=== PATIENT | male | born 1950 | race Caucasian/White ===

== ENCOUNTER 2016-06-27 02:48 | Inpatient (IN) | payer MEDICARE, MEDICAID ==
[~2016-06-27] VITALS: Ht 177.8 cm; Wt 56.3 kg
[2016-06-27 04:00] VITALS: BP 138/70
[2016-06-27] MEDS ORDERED: LORazepam 1 MG TABLET PO PRN (04:15)
[2016-06-27] MEDS ORDERED: QUEtiapine FUMARATE 100 MG TABLET PO PRN (04:15)
[2016-06-27] MEDS ORDERED: ZOLPIDEM TARTRATE 10 MG TABLET PO PRN (04:15)
[2016-06-27 04:35] VITALS: BP 111/69
[2016-06-27] MEDS ORDERED: -PHARMACY VACCINE NOTE- MISC ONE ×2 (05:00)
[2016-06-27] MEDS ORDERED: PNEUMOCOCCAL VACCINE POLYVALENT 0.5 ML VIAL [PPSV23] IM ONE (05:00)
[2016-06-27 08:25] VITALS: BP 139/90
[2016-06-27] MEDS: CARVEDILOL 3.125 MG TABLET PO SCH ×2 (08:25→16:41)
[2016-06-27] MEDS: NICOTINE 21 MG/24 HOUR PATCH TD SCH (08:25)
[2016-06-27 08:36] LABS: BASOPHILS # (AUTO) 0.05 K/uL (0.00-0.20); BASOPHILS % (AUTO) 0.6 % (0.0-2.0); EOSINOPHILS # (AUTO) 0.37 K/uL (0.00-0.70); EOSINOPHILS % (AUTO) 4.77 % (1.0-6.0); HEMATOCRIT 35.7 % (41-53); HEMOGLOBIN 11.7 g/dL (13.5-17.5); LYMPHOCYTES # (AUTO) 1.4 K/uL (1.0-4.8); MEAN CORPUSCULAR HEMOGLOBIN 28.9 pg (26.0-34.0); MEAN CORPUSCULAR HGB CONC 32.8 G/dL (31.0-37.0); MEAN CORPUSCULAR VOLUME 88 fL (80-100); MONOCYTES # (AUTO) 0.6 K/uL (0.1-1.0); MONOCYTES % (AUTO) 8.1 % (2.0-9.0); NEUTROPHILS # (AUTO) 5.3 K/uL (1.8-7.7); NEUTROPHILS % (AUTO) 68.6 % (40.0-70.0); PLATELET COUNT (AUTO) 300 K/uL (150-450); RED BLOOD CELL COUNT(AUTO) 4.06 MIL/uL (4.50-5.90); RED CELL DISTRIBUTION WIDTH 16.3 % (11.5-14.5); WHITE BLOOD COUNT (AUTO) 7.7 K/uL (4.5-11.0)
[2016-06-27 08:48] LABS: ALANINE AMINOTRANSFERASE 16 U/L (12-78); ALBUMIN 3.2 g/dL (3.4-5.0); ANION GAP 7 mmol/L (8-16); ASPARTATE AMINOTRANSFERASE 13 U/L (15-37); BILIRUBIN,TOTAL 0.3 mg/dL (0.1-1.0); CALCIUM, TOTAL 8.6 mg/dL (8.8-10.5); CARBON DIOXIDE 28 mmol/L (22-29); CHLORIDE 105 mmol/L (98-107); CHOL/HDL RATIO 2.3 (4.2-7.3); CREATININE 0.78 mg/dL (0.60-1.30); GLOMERULAR FILTR. RATE CALC > 60 mL/min (>60); POTASSIUM 4.8 mmol/L (3.5-5.1); SODIUM SERUM 140 mmol/L (136-145); THYROID STIMULATING HORMONE 0.81 uIU/mL (0.36-3.74); TOTAL PROTEIN, SERUM 6.8 g/dL (6.4-8.2); UREA NITROGEN, BLOOD 21 mg/dL (7-18)
[2016-06-27 09:06] LABS: HEMOGLOBIN A1C 5.4 % (4.5-6.2)
[2016-06-27 16:07] VITALS: BP 137/91
[2016-06-27] MEDS: OLANZapine 10 MG TABLET PO SCH (20:34)
[2016-06-28 02:05] VITALS: BP 118/72
[2016-06-28 08:07] VITALS: BP 130/84
[2016-06-28] MEDS: NICOTINE 21 MG/24 HOUR PATCH TD SCH (09:24)
[2016-06-28] MEDS: CARVEDILOL 3.125 MG TABLET PO SCH ×2 (09:24→16:48)
[2016-06-28] MEDS: PARoxetine HCL 20 MG TABLET PO SCH (09:24)
[2016-06-28] MEDS ORDERED: ACETAMINOPHEN 325 MG TABLET PO PRN (09:45)
[2016-06-28] MEDS ORDERED: IBUPROFEN 600 MG TABLET PO PRN (09:45)
[2016-06-28 16:13] VITALS: BP 132/66
[2016-06-28] MEDS: OLANZapine 10 MG TABLET PO SCH (20:30)
[2016-06-29 05:48] VITALS: BP 143/81
[2016-06-29 08:57] VITALS: BP 111/73
[2016-06-29] MEDS: CARVEDILOL 3.125 MG TABLET PO SCH ×2 (09:16→16:33)
[2016-06-29] MEDS: NICOTINE 21 MG/24 HOUR PATCH TD SCH (09:16)
[2016-06-29] MEDS: PARoxetine HCL 20 MG TABLET PO SCH (09:16)
[2016-06-29 16:13] VITALS: BP 137/77
[2016-06-29] MEDS: OLANZapine 10 MG TABLET PO SCH (20:10)
[2016-06-30 06:03] VITALS: BP 138/69
[2016-06-30 08:16] VITALS: BP 120/68
[2016-06-30] MEDS: CARVEDILOL 3.125 MG TABLET PO SCH ×2 (09:27→16:42)
[2016-06-30] MEDS: NICOTINE 21 MG/24 HOUR PATCH TD SCH (09:27)
[2016-06-30] MEDS: PARoxetine HCL 20 MG TABLET PO SCH (09:27)
[2016-06-30 16:09] VITALS: BP 120/75
[2016-06-30] MEDS: OLANZapine 10 MG TABLET PO SCH (20:34)
[2016-07-01 00:06] VITALS: BP 127/71
[2016-07-01] MEDS: NICOTINE 21 MG/24 HOUR PATCH TD SCH (08:43)
[2016-07-01] MEDS: PARoxetine HCL 20 MG TABLET PO SCH (08:43)
[2016-07-01 08:45] VITALS: BP_SYST 107; BP_SYST 110; BP_DIAS 65; BP_DIAS 67
[2016-07-01] MEDS: CARVEDILOL 3.125 MG TABLET PO SCH ×2 (08:48→16:54)
[2016-07-01 16:11] VITALS: BP 114/60
[2016-07-01] MEDS: OLANZapine 10 MG TABLET PO SCH (20:40)
[2016-07-02 00:33] VITALS: BP 103/67
[2016-07-02 08:10] VITALS: BP 117/67
[2016-07-02] MEDS: PARoxetine HCL 20 MG TABLET PO SCH (08:35)
[2016-07-02] MEDS: CARVEDILOL 3.125 MG TABLET PO SCH ×2 (08:35→17:29)
[2016-07-02] MEDS: NICOTINE 21 MG/24 HOUR PATCH TD SCH (08:35)
[2016-07-02 16:09] VITALS: BP 124/61
[2016-07-02] MEDS: OLANZapine 10 MG TABLET PO SCH (20:58)
[2016-07-03 03:22] VITALS: BP 122/67
[2016-07-03 08:07] VITALS: BP 111/57
[2016-07-03] MEDS: CARVEDILOL 3.125 MG TABLET PO SCH ×2 (08:53→16:36)
[2016-07-03] MEDS: NICOTINE 21 MG/24 HOUR PATCH TD SCH (08:53)
[2016-07-03] MEDS: PARoxetine HCL 20 MG TABLET PO SCH (08:53)
[2016-07-03 16:11] VITALS: BP 127/71
[2016-07-03] MEDS: OLANZapine 10 MG TABLET PO SCH (20:47)
[2016-07-04 00:15] VITALS: BP 126/66
[2016-07-04 08:05] VITALS: BP 115/60
[2016-07-04] MEDS: PARoxetine HCL 20 MG TABLET PO SCH (08:19)
[2016-07-04] MEDS: CARVEDILOL 3.125 MG TABLET PO SCH (08:20)
[2016-07-04] MEDS: NICOTINE 21 MG/24 HOUR PATCH TD SCH (08:20)
[2016-07-04] MEDS ORDERED: OLAN10TA3 PO (11:03)
[2016-07-04] MEDS ORDERED: PARO20TA24 PO (11:03)
[2016-07-04] MEDS ORDERED: CARV6 PO (11:03)
== END 2016-07-04 14:30 | disposition home or self-care (01) | DRG 885 ==
LOC: B2X 04:18 → EDSTATUS 04:40
PROC: 3E0234Z Introduction of Serum, Toxoid and Vaccine into Muscle, Percutaneous Approach (ICD-10-PCS; principal; 2016-06-27)
PROC: HZ47ZZZ Group Counseling for Substance Abuse Treatment, Motivational Enhancement (ICD-10-PCS; 2016-06-27)
DX: F25.1 Schizoaffective disorder, depressive type (principal); J44.9 Chronic obstructive pulmonary disease, unspecified; G89.4 Chronic pain syndrome; B19.20 Unspecified viral hepatitis C without hepatic coma; F17.210 Nicotine dependence, cigarettes, uncomplicated; R00.1 Bradycardia, unspecified; R45.850 Homicidal ideations; H40.9 Unspecified glaucoma; F10.20 Alcohol dependence, uncomplicated; G62.9 Polyneuropathy, unspecified; Z90.89 Acquired absence of other organs; Z88.8 Allergy status to other drugs, medicaments and biological substances; Z79.899 Other long term (current) drug therapy; Z91.5 Personal history of self-harm; Z71.6 Tobacco abuse counseling; Z23 Encounter for immunization
CPT/HCPCS: 83036; 84443; 90471

== ENCOUNTER 2016-07-20 17:24 | Inpatient (IN) | payer MEDICARE, MEDICAID ==
[~2016-07-20] VITALS: Ht 177.8 cm; Wt 57.2 kg
[~2016-07-20 17:24] MED LIST: CARV6 PO; OLAN10TA3 PO; PARO20TA24 PO
[2016-07-20 17:36] VITALS: BP 143/80
[2016-07-20] MEDS ORDERED: ZOLPIDEM TARTRATE 10 MG TABLET PO PRN (17:45)
[2016-07-20] MEDS ORDERED: LORazepam 1 MG TABLET PO PRN (17:45)
[2016-07-20] MEDS ORDERED: QUEtiapine FUMARATE 100 MG TABLET PO PRN (17:45)
[2016-07-20 18:41] VITALS: BP 145/81
[2016-07-20] MEDS: CARVEDILOL 6.25 MG TABLET PO SCH (22:07)
[2016-07-20 22:08] VITALS: BP 139/68
[2016-07-20] MEDS: OLANZapine 10 MG TABLET PO SCH (22:08)
[2016-07-21 00:13] VITALS: BP 120/71
[2016-07-21 08:30] VITALS: BP 116/67
[2016-07-21 08:58] LABS: BASOPHILS # (AUTO) 0.04 K/uL (0.00-0.20); BASOPHILS % (AUTO) 0.5 % (0.0-2.0); EOSINOPHILS # (AUTO) 0.36 K/uL (0.00-0.70); EOSINOPHILS % (AUTO) 4.67 % (1.0-6.0); HEMATOCRIT 38.9 % (41-53); HEMOGLOBIN 12.7 g/dL (13.5-17.5); LYMPHOCYTES % (AUTO) 13.7 % (22.0-44.0); MEAN CORPUSCULAR HEMOGLOBIN 29.1 pg (26.0-34.0); MEAN CORPUSCULAR HGB CONC 32.7 G/dL (31.0-37.0); MEAN CORPUSCULAR VOLUME 89 fL (80-100); MONOCYTES # (AUTO) 0.5 K/uL (0.1-1.0); MONOCYTES % (AUTO) 6.3 % (2.0-9.0); NEUTROPHILS # (AUTO) 5.7 K/uL (1.8-7.7); NEUTROPHILS % (AUTO) 74.9 % (40.0-70.0); PLATELET COUNT (AUTO) 240 K/uL (150-450); RED BLOOD CELL COUNT(AUTO) 4.37 MIL/uL (4.50-5.90); RED CELL DISTRIBUTION WIDTH 15.2 % (11.5-14.5); WHITE BLOOD COUNT (AUTO) 7.6 K/uL (4.5-11.0)
[2016-07-21] MEDS ORDERED: NICOTINE 21 MG/24 HOUR PATCH TD SCH (09:00)
[2016-07-21] MEDS: CARVEDILOL 6.25 MG TABLET PO SCH ×2 (09:11→17:02)
[2016-07-21] MEDS: PARoxetine HCL 20 MG TABLET PO SCH (09:11)
[2016-07-21] MEDS: NICOTINE 21 MG/24 HOUR PATCH TD SCH (09:12)
[2016-07-21 09:19] LABS: ALANINE AMINOTRANSFERASE 21 U/L (12-78); ALBUMIN 3.3 g/dL (3.4-5.0); ANION GAP 10 mmol/L (8-16); ASPARTATE AMINOTRANSFERASE 16 U/L (15-37); BILIRUBIN,TOTAL 0.5 mg/dL (0.1-1.0); CALCIUM, TOTAL 8.4 mg/dL (8.8-10.5); CARBON DIOXIDE 24 mmol/L (22-29); CHLORIDE 106 mmol/L (98-107); CREATININE 0.82 mg/dL (0.60-1.30); GLOMERULAR FILTR. RATE CALC > 60 mL/min (>60); SODIUM SERUM 140 mmol/L (136-145); TOTAL PROTEIN, SERUM 7.1 g/dL (6.4-8.2); UREA NITROGEN, BLOOD 11 mg/dL (7-18)
[2016-07-21 16:11] VITALS: BP 127/67
[2016-07-21] MEDS ORDERED: ACETAMINOPHEN 325 MG TABLET PO PRN (18:30)
[2016-07-21] MEDS: OLANZapine 10 MG TABLET PO SCH (20:48)
[2016-07-22 08:06] VITALS: BP 113/64
[2016-07-22] MEDS: CARVEDILOL 6.25 MG TABLET PO SCH ×2 (09:06→16:22)
[2016-07-22] MEDS: PARoxetine HCL 20 MG TABLET PO SCH (09:07)
[2016-07-22] MEDS: NICOTINE 21 MG/24 HOUR PATCH TD SCH (09:07)
[2016-07-22 16:10] VITALS: BP 129/66
[2016-07-22] MEDS: OLANZapine 10 MG TABLET PO SCH (20:49)
[2016-07-23 00:30] VITALS: BP 121/68
[2016-07-23] MEDS: IBUPROFEN 600 MG TABLET PO PRN ×2 (02:17→13:42)
[2016-07-23 08:12] VITALS: BP 116/71
[2016-07-23] MEDS: PARoxetine HCL 20 MG TABLET PO SCH (08:44)
[2016-07-23] MEDS: CARVEDILOL 6.25 MG TABLET PO SCH ×2 (08:44→17:16)
[2016-07-23] MEDS: NICOTINE 21 MG/24 HOUR PATCH TD SCH (08:44)
[2016-07-23 13:42] VITALS: BP 120/72
[2016-07-23 16:10] VITALS: BP 116/67
[2016-07-23] MEDS: OLANZapine 10 MG TABLET PO SCH (21:02)
[2016-07-24 02:35] VITALS: BP 118/65
[2016-07-24 08:22] VITALS: BP 124/72
[2016-07-24] MEDS: CARVEDILOL 6.25 MG TABLET PO SCH ×2 (09:24→16:59)
[2016-07-24] MEDS: PARoxetine HCL 20 MG TABLET PO SCH (09:25)
[2016-07-24] MEDS: NICOTINE 21 MG/24 HOUR PATCH TD SCH (09:25)
[2016-07-24 16:11] VITALS: BP 111/72
[2016-07-24 20:24] VITALS: BP 122/84
[2016-07-24] MEDS: IBUPROFEN 600 MG TABLET PO PRN (20:24)
[2016-07-24] MEDS: OLANZapine 10 MG TABLET PO SCH (20:39)
[2016-07-25 05:10] VITALS: BP 111/83
[2016-07-25 08:23] VITALS: BP 141/68
[2016-07-25] MEDS: PARoxetine HCL 20 MG TABLET PO SCH (08:36)
[2016-07-25] MEDS: CARVEDILOL 6.25 MG TABLET PO SCH ×2 (08:36→16:59)
[2016-07-25] MEDS: NICOTINE 21 MG/24 HOUR PATCH TD SCH (08:36)
[2016-07-25 13:18] VITALS: BP 126/70
[2016-07-25] MEDS: IBUPROFEN 600 MG TABLET PO PRN (13:18)
[2016-07-25 16:59] VITALS: BP 124/68
[2016-07-25] MEDS: OLANZapine 10 MG TABLET PO SCH (20:41)
[2016-07-26 00:10] VITALS: BP 125/71
[2016-07-26 08:09] VITALS: BP 112/65
[2016-07-26] MEDS: NICOTINE 21 MG/24 HOUR PATCH TD SCH (09:09)
[2016-07-26] MEDS: CARVEDILOL 6.25 MG TABLET PO SCH ×2 (09:09→16:38)
[2016-07-26] MEDS: PARoxetine HCL 20 MG TABLET PO SCH (09:09)
[2016-07-26 16:02] VITALS: BP 119/67
[2016-07-26] MEDS: IBUPROFEN 600 MG TABLET PO PRN (16:05)
[2016-07-26] MEDS: OLANZapine 10 MG TABLET PO SCH (20:39)
[2016-07-27 00:05] VITALS: BP 111/69
[2016-07-27 08:12] VITALS: BP 116/84
[2016-07-27] MEDS: PARoxetine HCL 20 MG TABLET PO SCH (08:51)
[2016-07-27] MEDS: CARVEDILOL 6.25 MG TABLET PO SCH ×2 (08:51→16:21)
[2016-07-27] MEDS: NICOTINE 21 MG/24 HOUR PATCH TD SCH (08:52)
[2016-07-27 16:15] VITALS: BP 137/73
[2016-07-27 19:31] VITALS: BP 132/76
[2016-07-27] MEDS: OLANZapine 10 MG TABLET PO SCH (20:55)
[2016-07-28 05:30] VITALS: BP 136/78
[2016-07-28 08:19] VITALS: BP 113/64
[2016-07-28] MEDS: CARVEDILOL 6.25 MG TABLET PO SCH ×2 (08:56→16:37)
[2016-07-28] MEDS: PARoxetine HCL 20 MG TABLET PO SCH (08:56)
[2016-07-28] MEDS: NICOTINE 21 MG/24 HOUR PATCH TD SCH (08:57)
[2016-07-28 16:13] VITALS: BP 135/76
[2016-07-28] MEDS: OLANZapine 10 MG TABLET PO SCH (20:41)
[2016-07-29 05:58] VITALS: BP 117/64
[2016-07-29 08:41] VITALS: BP 143/72
[2016-07-29] MEDS: PARoxetine HCL 20 MG TABLET PO SCH (09:18)
[2016-07-29] MEDS: NICOTINE 21 MG/24 HOUR PATCH TD SCH (09:18)
[2016-07-29] MEDS: CARVEDILOL 6.25 MG TABLET PO SCH ×2 (09:18→16:42)
[2016-07-29 17:14] VITALS: BP 125/80
[2016-07-29] MEDS: OLANZapine 10 MG TABLET PO SCH (20:40)
[2016-07-30 06:32] VITALS: BP 123/78
[2016-07-30 08:13] VITALS: BP 112/62
[2016-07-30] MEDS: CARVEDILOL 6.25 MG TABLET PO SCH ×2 (09:53→16:36)
[2016-07-30] MEDS: PARoxetine HCL 20 MG TABLET PO SCH (09:54)
[2016-07-30] MEDS: NICOTINE 21 MG/24 HOUR PATCH TD SCH (09:54)
[2016-07-30 16:13] VITALS: BP 119/78
[2016-07-30] MEDS: OLANZapine 10 MG TABLET PO SCH (20:36)
[2016-07-31 05:50] VITALS: BP 112/70
[2016-07-31 08:17] VITALS: BP 112/64
[2016-07-31] MEDS: NICOTINE 21 MG/24 HOUR PATCH TD SCH (08:59)
[2016-07-31] MEDS: CARVEDILOL 6.25 MG TABLET PO SCH (08:59)
[2016-07-31] MEDS: PARoxetine HCL 20 MG TABLET PO SCH (08:59)
== END 2016-07-31 10:15 | disposition home or self-care (01) | DRG 885 ==
LOC: B2X 17:46 → EDSTATUS 17:49 → B2X 07-23 21:30
DX: F25.1 Schizoaffective disorder, depressive type (principal); R45.851 Suicidal ideations; R45.84 Anhedonia; N40.0 Benign prostatic hyperplasia without lower urinary tract symptoms; H40.9 Unspecified glaucoma; J44.9 Chronic obstructive pulmonary disease, unspecified; B19.20 Unspecified viral hepatitis C without hepatic coma; F10.20 Alcohol dependence, uncomplicated; M54.5 Low back pain; D64.9 Anemia, unspecified; Z91.19 Patient's noncompliance with other medical treatment and regimen; Z81.8 Family history of other mental and behavioral disorders; Z91.5 Personal history of self-harm; Z90.89 Acquired absence of other organs; Z88.8 Allergy status to other drugs, medicaments and biological substances; Z85.46 Personal history of malignant neoplasm of prostate; Z59.0 Homelessness
CPT/HCPCS: 87081

== ENCOUNTER 2020-01-14 20:35 | Emergency (ER) | payer MEDICARE, OTHER ==
[~2020-01-14] VITALS: Ht 175.3 cm; Wt 54.5 kg
[~2020-01-14 20:35] MED LIST changes: +PARO-38 PO; -PARO20TA24 PO
[2020-01-14] MEDS ORDERED: HEPARIN SODIUM,PORCINE 100 UNITS/ML 5 ML VIAL IVP ONE (20:45)
[2020-01-14 21:35] LABS: BASOPHILS % (AUTO) 0.6 % (0.0-2.0); EOSINOPHILS % (AUTO) 3.4 % (1.0-6.0); HEMATOCRIT 35.9 % (41-53); HEMOGLOBIN 12.4 g/dL (13.5-17.5); LYMPHOCYTES % (AUTO) 14.4 % (22.0-44.0); MEAN CORPUSCULAR HEMOGLOBIN 30.5 pg (26.0-34.0); MEAN CORPUSCULAR HGB CONC 34.5 G/dL (31.0-37.0); MEAN CORPUSCULAR VOLUME 88 fL (80-100); MONOCYTES # (AUTO) 0.8 K/uL (0.1-1.0); MONOCYTES % (AUTO) 11.3 % (2.0-9.0); NEUTROPHILS # (AUTO) 4.9 K/uL (1.8-7.7); NEUTROPHILS % (AUTO) 70.3 % (40.0-70.0); PLATELET COUNT (AUTO) 433 K/uL (150-450); RED BLOOD CELL COUNT(AUTO) 4.06 MIL/uL (4.50-5.90); RED CELL DISTRIBUTION WIDTH 14.4 % (11.5-14.5)
[2020-01-14 21:38] LABS: ANION GAP 5 mmol/L (8-16); CALCIUM, TOTAL 8.8 mg/dL (8.8-10.5); CARBON DIOXIDE 30 mmol/L (22-29); CHLORIDE 102 mmol/L (98-107); CREATININE 0.73 mg/dL (0.60-1.30); GLUCOSE,RANDOM 101 mg/dL (70-110); POTASSIUM 3.9 mmol/L (3.5-5.1); SODIUM SERUM 137 mmol/L (136-145); UREA NITROGEN, BLOOD 16 mg/dL (7-18)
[2020-01-14 21:40] LABS: GLOMERULAR FILTR. RATE CALC > 60 mL/min (>60)
[2020-01-14 21:44] LABS: ALANINE AMINOTRANSFERASE 13 U/L (12-78); ALBUMIN 2.8 g/dL (3.4-5.0); ALKALINE PHOSPHATASE 61 U/L (46-116); ASPARTATE AMINOTRANSFERASE 13 U/L (15-37); BILIRUBIN,TOTAL 0.5 mg/dL (0.1-1.0); LIPASE 282 U/L (73-393); TOTAL PROTEIN, SERUM 6.7 g/dL (6.4-8.2)
[2020-01-14 23:02] LABS: COVID AG,FIA SOURCE NASOPHARYNGEAL
[2020-01-14 23:30] VITALS: BP 128/76
== END 2020-01-15 00:54 | disposition home or self-care (01) ==
LOC: EMS 20:37
DX: F32.9 Major depressive disorder, single episode, unspecified (principal); R10.9 Unspecified abdominal pain; R19.7 Diarrhea, unspecified; K21.9 Gastro-esophageal reflux disease without esophagitis; I10 Essential (primary) hypertension; F20.9 Schizophrenia, unspecified; F17.210 Nicotine dependence, cigarettes, uncomplicated; Z20.828 Contact with and (suspected) exposure to other viral communicable diseases; Z88.8 Allergy status to other drugs, medicaments and biological substances
CPT/HCPCS: 80053; 83690; 85025; 87426; 99283; G0480; J1642

== ENCOUNTER 2023-03-09 02:56 | Emergency (ER) | payer MEDICARE, MEDICAID ==
[~2023-03-09] VITALS: Ht 177.8 cm; Wt 59.0 kg
[~2023-03-09 02:56] MED LIST changes: +ACID1TAB13 PO; +BISA-151 PO; +METO5TAB95 PO; +MULT-1239 PO; -OLAN10TA3 PO; +OLAN5TAB52 PO; -PARO-38 PO; +POLY17PO47 PO
[2023-03-09 03:01] VITALS: TEMP 97.9
[2023-03-09 03:38] LABS: BASOPHILS % (AUTO) 0.4 % (0.0-2.0); EOSINOPHILS % (AUTO) 4.3 % (1.0-6.0); HEMATOCRIT 38.5 % (41-53); HEMOGLOBIN 13.2 g/dL (13.5-17.5); LYMPHOCYTES # (AUTO) 0.8 K/uL (1.0-4.8); LYMPHOCYTES % (AUTO) 9.5 % (22.0-44.0); MEAN CORPUSCULAR HEMOGLOBIN 29.9 pg (26.0-34.0); MEAN CORPUSCULAR HGB CONC 34.2 G/dL (31.0-37.0); MEAN CORPUSCULAR VOLUME 87 fL (80-100); MONOCYTES # (AUTO) 0.6 K/uL (0.1-1.0); MONOCYTES % (AUTO) 6.9 % (2.0-9.0); NEUTROPHILS # (AUTO) 6.4 K/uL (1.8-7.7); NEUTROPHILS % (AUTO) 78.9 % (40.0-70.0); PLATELET COUNT (AUTO) 204 K/uL (150-450); RED CELL DISTRIBUTION WIDTH 17.1 % (11.5-14.5); WHITE BLOOD COUNT (AUTO) 8.1 K/uL (4.5-11.0)
[2023-03-09 03:47] LABS: ANION GAP 11 mmol/L (8-16); CALCIUM, TOTAL 9.4 mg/dL (8.8-10.5); CARBON DIOXIDE 28 mmol/L (22-29); CHLORIDE 102 mmol/L (98-107); CREATININE 0.76 mg/dL (0.60-1.30); GLOMERULAR FILTR. RATE CALC > 60 mL/min (>60); GLUCOSE,RANDOM 85 mg/dL (70-110); POTASSIUM 3.8 mmol/L (3.5-5.1); SODIUM SERUM 141 mmol/L (136-145); UREA NITROGEN, BLOOD 21 mg/dL (7-18)
[2023-03-09 03:50] LABS: INR 1.1 (0.9-1.1)
[2023-03-09 03:53] LABS: ALANINE AMINOTRANSFERASE 64 U/L (12-78); ALBUMIN 4.4 g/dL (3.4-5.0); ALKALINE PHOSPHATASE 100 U/L (46-116); ASPARTATE AMINOTRANSFERASE 54 U/L (15-37); BILIRUBIN,TOTAL 0.5 mg/dL (0.1-1.0); TOTAL PROTEIN, SERUM 8.5 g/dL (6.4-8.2)
[2023-03-09 04:11] LABS: TROPONIN I-HIGH SENSITIVITY 9 ng/L (<76)
[2023-03-09 04:19] VITALS: BP 151/73; PULSE 103; RESP 19
== END 2023-03-09 05:54 | disposition home or self-care (01) ==
LOC: EMS 02:57
DX: R07.9 Chest pain, unspecified (principal); I10 Essential (primary) hypertension; F31.9 Bipolar disorder, unspecified; F20.9 Schizophrenia, unspecified; K21.9 Gastro-esophageal reflux disease without esophagitis; Z88.8 Allergy status to other drugs, medicaments and biological substances
CPT/HCPCS: 71045; 80053; 84484; 85025; 85610; 85730; 93005; 99285; 36415-L1; 36415-TC